=== PATIENT | female | born 1985 | race Caucasian/White ===

== ENCOUNTER 2017-12-25 15:35 | Emergency (ER) | payer BC, OTHER ==
--- NOTE | 2017-12-25 16:15 | ER Document Report ---
ED Medical Screen (RME) - General Chief Complaint: Syncope Stated Complaint: HEAD INJURY Time Seen by Provider: 12/25/17 16:13 Mode of Arrival: Ambulatory Information source: Patient, [facility] Records Notes: 32-year-old female with no reported past medical history presents with facial pain, head injury. Patient had a syncopal episode 2 days prior to arrival while having a bowel movement she states that she had a loss of consciousness and struck her head on the tub and awoke on the floor. She also reports that last night while taking out the trash struck her face on the cabinet. I have greeted and performed a rapid initial assessment of this patient. A comprehensive ED assessment and evaluation of the patient, analysis of test results and completion of medical decision making process we will be contacted by additional ED providers. PHYSICAL EXAMINATION: Vital signs reviewed GENERAL: Well-appearing, well-nourished and in no acute distress. LUNGS: No respiratory distress Musculoskeletal: Normal range of motion NEUROLOGICAL: Normal speech, normal gait. PSYCH: Normal mood, normal affect. TRAVEL OUTSIDE OF THE [place] IN LAST 30 DAYS: No - HPI Onset: Other Onset/Duration: Gradual Quality of pain: Throbbing Severity: Mild Associated Symptoms: Dizzy/lightheaded Exacerbated by: Denies Relieved by: Denies Similar symptoms previously: Yes Recently seen / treated by doctor: No - Related Data Smoking: Non-smoker Frequency of alcohol use: Occasional Drug Abuse: None Allergies/Adverse Reactions: No Known Allergies Allergy (Verified 12/25/17 16:00) Physical Exam - Vital signs Vitals: Temp Pulse Resp BP Pulse Ox 97.4 F 71 16 123/87 H 99 12/25/17 15:42 12/25/17 15:42 12/25/17 15:42 12/25/17 15:42 12/25/17 15:42 Course - Vital Signs Vital signs: Temp Pulse Resp BP Pulse Ox 97.4 F 71 16 123/87 H 99 12/25/17 15:42 12/25/17 15:42 12/25/17 15:42 12/25/17 15:42 12/25/17 15:42
--- NOTE | 2017-12-25 17:14 | RADIOLOGY REPORT (SQ) ---
EXAM DESCRIPTION: CT HEAD WITHOUT COMPLETED DATE/TIME: 12/25/2017 5:00 pm REASON FOR STUDY: fall + LOC COMPARISON: None. TECHNIQUE: Axial images acquired through the brain without intravenous contrast. Images reviewed wi th bone, brain and subdural windows. Images stored on PACS. All CT scanners at this facility use dose modulation, iterative reconstruction, and/or weight based d osing when appropriate to reduce radiation dose to as low as reasonably achievable (ALARA). [facility]: Dose Right [facility]: CareDose [facility]: Dose Right [facility]: Teradose 4D [facility]: Cascade Prodrug RADIATION DOSE: CT Rad equipment meets quality standard of care and radiation dose reduction techniq ues were employed. CTDIvol: 53.2 mGy. DLP: 1044 mGy-cm. mGy. LIMITATIONS: None. FINDINGS: VENTRICLES: Normal size and contour. CEREBRUM: No masses. No hemorrhage. No midline shift. No evidence for acute infarction. Normal gra y/white matter differentiation. No areas of low density in the white matter. CEREBELLUM: No masses. No hemorrhage. No alteration of density. No evidence for acute infarction. EXTRAAXIAL SPACES: No fluid collections. No masses. ORBITS AND GLOBE: No intra- or extraconal masses. Normal contour of globe without masses. CALVARIUM: No fracture. PARANASAL SINUSES: Moderate maxillary and ethmoid mucosal thickening. SOFT TISSUES: No mass or hematoma. OTHER: No other significant finding. IMPRESSION: No acute intracranial findings. Moderate maxillary and ethmoid sinusitis. EVIDENCE OF ACUTE STROKE: NO. COMMENT: Quality ID # 436: Final reports with documentation of one or more dose reduction techniques (e.g., Automated exposure control, adjustment of the mA and/or kV according to patient size, use of iterative reconstruction technique) TECHNICAL DOCUMENTATION: JOB ID: [id number] [place]-72 2010 [employer]- All Rights Reserved Reading location - IP/workstation name: [email or web address]
[2017-12-25 17:18] LABS: APPEARANCE,URINE CLOUDY; BILIRUBIN,URINE NEGATIVE (NEGATIVE); COLOR,URINE YELLOW; GLUCOSE, URINE NEGATIVE (NEGATIVE); KETONES,URINE NEGATIVE (NEGATIVE); LEUKOCYTE ESTERASE,URINE TRACE (NEGATIVE); NITRITE,URINE NEGATIVE (NEGATIVE); PROTEIN,URINE NEGATIVE (NEGATIVE); URINE SPECIFIC GRAVITY 1.032
--- NOTE | 2017-12-25 17:18 | RADIOLOGY REPORT (SQ) ---
EXAM DESCRIPTION: CT FACIAL AREA WITHOUT COMPLETED DATE/TIME: 12/25/2017 5:00 pm REASON FOR STUDY: fall + LOC COMPARISON: None. TECHNIQUE: Noncontrasted images through the facial bones and orbits windowed for bone and soft tissu e. Additional coronal and sagittal reconstructed images reviewed. All images stored on PACS. All CT scanners at this facility use dose modulation, iterative reconstruction, and/or weight based d osing when appropriate to reduce radiation dose to as low as reasonably achievable (ALARA). [facility]: Dose Right [facility]: CareDose [facility]: Dose Right [facility]: Teradose 4D [facility]: [employer] RADIATION DOSE: CT Rad equipment meets quality standard of care and radiation dose reduction techniq ues were employed. CTDIvol: 30.4 mGy. DLP: 530 mGy-cm. mGy. LIMITATIONS: None. FINDINGS: FACIAL BONES: No fracture or bone lesion. ORBITS: Intact. No fracture. Symmetric intact globes and retroorbital soft tissues. PARANASAL SINUSES: Diffuse mucosal thickening in the maxillary, ethmoid, and inferior frontal sinuses . Small amount of fluid in the sphenoid sinus. Maxillary sinus outlets are obstructed due to mucosa l thickening. SOFT TISSUES: No mass or edema. INFERIOR BRAIN: Limited view. No acute findings. OTHER: No other significant finding. IMPRESSION: No fracture. Diffuse mucosal thickening in the maxillary, ethmoid, and inferior frontal sinuses. Small amount of fluid in the sphenoid sinus. Maxillary sinus outlets are obstructed due to mucosal thickening. TECHNICAL DOCUMENTATION: JOB ID: [id number] [place]-72 Quality ID # [id number]: Final reports with documentation of one or more dose reduction techniques (e.g., Au tomated exposure control, adjustment of the mA and/or kV according to patient size, use of iterative reconstruction technique) 2010 [employer]- All Rights Reserved Reading location - IP/workstation name: [email or web address]
--- NOTE | 2017-12-25 18:18 | ER Document Report ---
ED General - General Chief Complaint: Syncope Stated Complaint: HEAD INJURY Time Seen by Provider: 12/25/17 16:13 Mode of Arrival: Ambulatory Information source: Patient Notes: 32-year-old female with no medical problems who was on the toilet at 12:30 PM on Monday (2 days ago) when she experienced a sudden syncopal event. Patient states she fell and hit her head. She states she did not feel right for the rest of the day on Monday and on Monday she was taking out the garbage and the ground was wet (because it it drained) and she lost control of the large garbage pale and she fell forward hitting the rail of the garbage pale right on the bridge of the nose. He never lost consciousness. She presents because of headache, upper back pain, face pain. She denies any previous syncopal episodes or any syncopal episodes since that time. View of systems: Patient does note that she has had congested sinuses for the past 2 months. TRAVEL OUTSIDE OF THE [place] IN LAST 30 DAYS: No - HPI Onset: Last week Onset/Duration: Gradual Quality of pain: No pain Severity: None Pain Level: Denies Associated symptoms: denies: Chest pain, Shortness of breath Exacerbated by: Denies Relieved by: Denies Similar symptoms previously: No Recently seen / treated by doctor: No - Related Data Allergies/Adverse Reactions: No Known Allergies Allergy (Verified 12/25/17 16:00) Past Medical History - General Information source: Patient, [facility] Records - Social History Smoking Status: Never Smoker Cigarette use (# per day): No Chew tobacco use (# tins/day): No Frequency of alcohol use: Occasional Drug Abuse: None Lives with: Family Family History: Reviewed & Not Pertinent Patient has suicidal ideation: No Patient has homicidal ideation: No - Medical History Medical History: Negative Renal/ Medical History: Denies: Hx Peritoneal Dialysis Past Surgical History: Reports: Hx Orthopedic Surgery - right elbow Review of Systems - Review of Systems Constitutional: denies: Chills, Fever EENT: Nose congestion, Sinus pressure Cardiovascular: See HPI, Syncope Respiratory: denies: Cough, Short of breath Gastrointestinal: No symptoms reported Genitourinary: No symptoms reported Female Genitourinary: No symptoms reported Musculoskeletal: See HPI Skin: No symptoms reported Hematologic/Lymphatic: No symptoms reported Neurological/Psychological: No symptoms reported, Lost consciousness. denies: Weakness, Seizure, Speech impairment, Numbness Physical Exam - Vital signs Vitals: Temp Pulse Resp BP Pulse Ox 97.4 F 71 16 123/87 H 99 12/25/17 15:42 12/25/17 15:42 12/25/17 15:42 12/25/17 15:42 12/25/17 15:42 - Notes Notes: Physical exam: GENERAL: Patient is alert and oriented x3 and in no acute distress. She is mentating appropriately. HEAD: Atraumatic, normocephalic. EYES: Pupils equal round and reactive to light, extraocular movements intact, sclera anicteric, conjunctiva are normal. ENT: TMs normal, nares patent, oropharynx clear without exudates. Moist mucous membranes. NECK: Cervical spine is nontender in the midline. She does have paraspinal tenderness more so on the left. There is no crepitus step-offs. Normal range of motion, supple without obvious mass. LUNGS: Breath sounds clear to auscultation bilaterally and equal. No wheezes rales or rhonchi. HEART: Regular rate and rhythm without murmurs, rubs or gallops. ABDOMEN: Soft, normoactive bowel sounds. No tenderness to palpation. No guarding, no rebound. No masses appreciated. EXTREMITIES: She has had lateral foot pain for a few months after sprain her right ankle. She does have some tenderness in the ligaments just underneath the lateral malleolus. There is no bone tenderness and no instability of the ankle. NEUROLOGICAL: Cranial nerves II through XII grossly intact. Normal speech, moving all extremities. Motor is 5/5, sensory is grossly intact, cerebellar ( finger to nose) is good. Romberg is negative. Visual acuity is intact. Visual holguin are good. Reflexes are symmetrical. PSYCH: Normal mood, normal affect. SKIN: Warm, Dry, normal turgor, no rashes or lesions noted. Course - Re-evaluation Re-evalutation: 12/25/17 18:24 Patient is young for this type of event (the fainting spell). She is in sinus rhythm her QT interval and VT intervals look good. There is an RSR prime in V2 which is somewhat nonspecific. I did discuss the case with Dr. Ochoa ( roofer apprentice) and is willing to see the patient this week for possible echo/ event recording. 12/25/17 18:24 And issue is the patient sinusitis. She has had symptoms for greater than 10 days and has evidence of sinus disease on CAT scan. Will treat with simply saline and Augmentin. I will refer her to an ENT doctor. - Vital Signs Vital signs: Temp Pulse Resp BP Pulse Ox 98.0 F 62 13 127/79 H 100 12/25/17 18:39 10 18:39 12/25/17 18:39 12/25/17 18:39 12/25/17 18:39 - Laboratory Laboratory results interpreted by me: 12/25/17 16:50 Urine Urobilinogen 2.0 H Ur Leukocyte Esterase TRACE H - Diagnostic Test Radiology reviewed: Image reviewed, Reports reviewed - CT of the head and face shows no acute fractures. There is a fair amount of sinusitis. - EKG Interpretation by Me Rate: Normal Rhythm: NSR - EKG shows normal sinus rhythm without any acute T wave changes. There is an RSR prime in V2. This was discussed with Dr. Ochoa. Discharge - Discharge Clinical Impression: Syncope, Acute sinusitis Condition: Stable Disposition: HOME, SELF-CARE Additional Instructions: As far as the fainting spell: CT of the head was normal. Your neurologic exam today was normal. I do want you to follow-up with the roofer apprentice who I spoke to today about you. His cell phone number is [phone]. I would stop the phentermine until you discuss it with the roofer apprentice. As far as the sinusitis: I would like you to use simply saline nose spray daily in the shower or by the sink. Start taking Augmentin. Follow-up with an ENT Doctor: [facility] [address] [place] [address] Toll Free: Prescriptions: Amox Tr/Potassium Clavulanate [Augmentin 875-125 Tablet] 1 tab PO BID #20 tablet Referrals: FELIPE CARTAGENA MD [Primary Care Provider] - Follow up as needed JIMI OCHOA MD [ACTIVE STAFF] - Follow up as needed (This is the number the roofer apprentice. I want you to call his cell phone tomorrow: [phone] so that he can see you within the office for possible ultrasound/event recorder.)
[2017-12-25 18:43] VITALS: BP 127/79
--- NOTE | 2017-12-25 22:57 | EKG REPORT ---
SEVERITY:- NORMAL ECG - SINUS RHYTHM : Confirmed by: Ila Greenberg 25-Dec-2017 22:56:28
== END 2017-12-25 18:44 | disposition home or self-care (01) ==
LOC: ER 15:35
DX: R55 Syncope and collapse (principal); J01.80 Other acute sinusitis; R51 Headache; M54.89 Other dorsalgia; W19.XXXA Unspecified fall, initial encounter; M79.673 Pain in unspecified foot
CPT/HCPCS: 70450; 70486; 81001; 81025; 93005; 93010; 99285